=== PATIENT | male | born 1970 | race Caucasian/White ===

== ENCOUNTER 2019-06-28 18:40 | Emergency (ER) | payer MEDICAID ==
[2015-11-03 13:35] VITALS: BP 138/96
[~2019-06-28] VITALS: Ht 185.4 cm; Wt 79.5 kg
[~2019-06-28 18:40] MED LIST: CIPRO 500MG TA500 MG PO; CIPRO500 M1 PO; GLIPIZIDE10 M2 PO; GLUCOPHAGE PO; LISINOPRIL20 MG PO; NORCO 10-325 T1 EACH PO; NORCO 325 MG-51 TAB PO; PHENERGAN 25 TA25 MG PO; RT ALBUTEROL I6.8 GM INH
[2019-06-28] MEDS ORDERED: PROAIR HFA0.09 MG/AC IH (19:51)
[2019-06-28] MEDS ORDERED: CLOPIDOGREL PO (19:52)
[2019-06-28] MEDS ORDERED: ADULT ASPIRIN R81 MG PO (19:52)
[2019-06-28] MEDS ORDERED: KLONOPIN 1MG1 MG PO (19:52)
[2019-06-28] MEDS ORDERED: VITAMIN C500 M7 PO (19:52)
[2019-06-28] MEDS ORDERED: CLARITIN10 M1 PO (19:53)
[2019-06-28] MEDS ORDERED: CYCLOBENZAPRINE10 M1 PO (19:53)
[2019-06-28] MEDS ORDERED: SENNA PLUS 50 M1 TA2 PO (19:53)
[2019-06-28] MEDS ORDERED: MIRALAX17 GM PO (19:54)
[2019-06-28] MEDS ORDERED: LIPITOR 10M10 MG/TAB PO (19:58)
== END 2019-06-28 20:00 | disposition left against medical advice (07) ==
LOC: ED 18:40
DX: M79.604 Pain in right leg (principal); I10 Essential (primary) hypertension; E11.51 Type 2 diabetes mellitus with diabetic peripheral angiopathy without gangrene; F17.210 Nicotine dependence, cigarettes, uncomplicated; Z79.02 Long term (current) use of antithrombotics/antiplatelets; Z79.82 Long term (current) use of aspirin; Z89.511 Acquired absence of right leg below knee; W01.0XXA Fall on same level from slipping, tripping and stumbling without subsequent striking against object, initial encounter; Y92.009 Unspecified place in unspecified non-institutional (private) residence as the place of occurrence of the external cause

== ENCOUNTER 2019-10-05 20:42 | Emergency (ER) | payer MEDICAID ==
[~2019-10-05 20:42] MED LIST changes: +ADULT ASPIRIN R81 MG PO; +CLARITIN10 M1 PO; +CLOPIDOGREL PO; +CYCLOBENZAPRINE10 M1 PO; +KLONOPIN 1MG1 MG PO; +LIPITOR 10M10 MG/TAB PO; +MIRALAX17 GM PO; +PROAIR HFA0.09 MG/AC IH; +SENNA PLUS 50 M1 TA2 PO; +VITAMIN C500 M7 PO
[2019-10-05] MEDS ORDERED: LEVEMIR FLEX100 U/ML SQ (21:00)
[2019-10-05] MEDS ORDERED: HYDROCODONE BIT1 T36 PO (21:01)
[2019-10-05] MEDS ORDERED: DOXYCYCLINE MO100 M3 PO (21:02)
[2019-10-05] MEDS ORDERED: PHENERGAN 25 TA25 MG PO (21:02)
[2019-10-05 21:49] LABS: BASO # 0.1 (0.02-0.10); EOS # 0.1 (0.04-0.40); HEMATOCRIT 48.6 % (42.0-52.0); HEMOGLOBIN 16.2 g/dL (13.5-18.0); LYMPH# 2.3 (1.50-4.00); MEAN CELL VOLUME 87 fl (78-100); MEAN CORPUSCULAR HEMOGLOBIN 29 pg (27-31); MEAN CORPUSCULAR HGB CONC 33 g/dL (33-37); MEAN PLATELET VOLUME 10.9 fl (7.4-10.4); MONO # 1.1 (0.20-0.80); PLATELET COUNT 281 K/mm3 (130-400); RED BLOOD COUNT 5.61 M/mm3 (4.20-5.60); RED CELL DISTRIBUTION WIDTH 14.5 % (11.5-14.5); WHITE BLOOD COUNT 11.5 K/mm3 (4.8-10.8)
[2019-10-05 21:57] LABS: POTASSIUM 5.1 mmol/L (3.5-5.1)
[2019-10-05 21:58] LABS: CALCIUM 9.8 mg/dL (8.3-10.5)
[2019-10-05] MEDS ORDERED: MUPIROCIN1 GM NS (22:32)
[2019-10-05] MEDS ORDERED: SEPTRA DS 8001 TAB PO (22:32)
[2019-10-05 22:50] VITALS: BP 147/91
== END 2019-10-05 22:51 | disposition home or self-care (01) ==
LOC: ED 20:42
PROVIDERS: Family Medicine
DX: L03.114 Cellulitis of left upper limb (principal); L02.414 Cutaneous abscess of left upper limb; E11.51 Type 2 diabetes mellitus with diabetic peripheral angiopathy without gangrene; F17.210 Nicotine dependence, cigarettes, uncomplicated; Z79.02 Long term (current) use of antithrombotics/antiplatelets; Z79.4 Long term (current) use of insulin; Z79.82 Long term (current) use of aspirin; Z86.718 Personal history of other venous thrombosis and embolism; Z89.511 Acquired absence of right leg below knee

== ENCOUNTER 2020-08-14 11:23 | Emergency (ER) | payer MEDICAID ==
[~2020-08-14 11:23] MED LIST changes: +DOXYCYCLINE MO100 M3 PO; +HYDROCODONE BIT1 T36 PO; +LEVEMIR FLEX100 U/ML SQ; -LIPITOR 10M10 MG/TAB PO; +MUPIROCIN1 GM NS; +SEPTRA DS 8001 TAB PO; +SIMVASTATIN20 M1 PO
[2020-08-14] MEDS ORDERED: LISINOPRIL20 MG PO (11:45)
[2020-08-14] MEDS ORDERED: NEURONTIN300 MG/CAP PO (12:19)
[2020-08-14 12:22] LABS: BASO # 0.04 (0.02-0.10); EOS # 0.08 (0.04-0.40); EOS % 0.8 % (0.0-4.0); HEMATOCRIT 56.2 % (42.0-52.0); HEMOGLOBIN 19.6 g/dL (13.5-18.0); LYMPH# 3.05 (1.50-4.00); MEAN CELL VOLUME 84 fl (78-100); MEAN CORPUSCULAR HEMOGLOBIN 29 pg (27-31); MEAN CORPUSCULAR HGB CONC 35 g/dL (33-37); MEAN PLATELET VOLUME 10.6 fl (7.4-10.4); MONO # 0.86 (0.20-0.80); NEU # 5.64 (1.40-6.50); PLATELET COUNT 300 K/mm3 (130-400); RED BLOOD COUNT 6.72 M/mm3 (4.20-5.60); RED CELL DISTRIBUTION WIDTH 12.4 % (11.5-14.5); WHITE BLOOD COUNT 9.7 K/mm3 (4.8-10.8)
[2020-08-14 12:29] LABS: POTASSIUM 4.6 mmol/L (3.5-5.1)
[2020-08-14 12:31] LABS: CALCIUM 10.2 mg/dL (8.3-10.5)
[2020-08-14 12:53] LABS: URINE APPEARANCE HAZY
[2020-08-14] MEDS ORDERED: INSULIN (12:55)
[2020-08-14 12:58] LABS: URINE BILIRUBIN NEGATIVE (NEGATIVE); URINE BLOOD NEGATIVE (NEGATIVE); URINE COLOR YELLOW; URINE KETONE NEGATIVE (NEGATIVE); URINE LEUKOCYTE ESTERASE NEGATIVE (NEGATIVE); URINE NITRATE NEGATIVE (NEGATIVE); URINE PROTEIN(semi-quant) TRACE mg/dL (NEGATIVE); URINE UROBILINOGEN NORMAL (NORMAL)
[2020-08-14 12:59] LABS: URINE MUCUS PRESENT (NOT PRESENT); URINE WBC 0-1 /hpf (0-3)
[2020-08-14 15:46] VITALS: BP 130/97
== END 2020-08-14 16:08 | disposition short-term general hospital (02) ==
LOC: ED 11:23
PROVIDERS: Family Medicine
DX: E11.65 Type 2 diabetes mellitus with hyperglycemia (principal); E86.9 Volume depletion, unspecified; Z98.890 Other specified postprocedural states; I10 Essential (primary) hypertension; F17.210 Nicotine dependence, cigarettes, uncomplicated; Z20.822 Contact with and (suspected) exposure to COVID-19; Z88.1 Allergy status to other antibiotic agents; Z79.4 Long term (current) use of insulin; Z79.899 Other long term (current) drug therapy
CPT/HCPCS: J1815; J1885; J7030

== ENCOUNTER → 2021-12-22 | Outpatient (CLI) | payer MEDICAID ==
[~2021-12-22] MED LIST changes: +INSULIN; +NEURONTIN300 MG/CAP PO
[2021-12-22 16:28] LABS: BASO # 0.06 K/mm3 (0.02-0.10); EOS # 0.13 K/mm3 (0.04-0.40); EOS % 1.6 % (0.0-4.0); HEMATOCRIT 52.4 % (42.0-52.0); HEMOGLOBIN 17.4 g/dL (13.5-18.0); LYMPH# 2.31 K/mm3 (1.50-4.00); MEAN CELL VOLUME 88 fl (78-100); MEAN CORPUSCULAR HEMOGLOBIN 29 pg (27-31); MEAN CORPUSCULAR HGB CONC 33 g/dL (33-37); MEAN PLATELET VOLUME 10.7 fl (7.4-10.4); MONO # 0.62 K/mm3 (0.20-0.80); NEU # 4.75 K/mm3 (1.40-6.50); PLATELET COUNT 237 K/mm3 (130-400); RED BLOOD COUNT 5.99 M/mm3 (4.20-5.60); RED CELL DISTRIBUTION WIDTH 12.8 % (11.5-14.5); WHITE BLOOD COUNT 7.9 K/mm3 (4.8-10.8)
[2021-12-22 16:35] LABS: ALBUMIN 4.3 g/dL (3.5-5.0); SODIUM 131 mmol/L (136-145)
[2021-12-22 16:37] LABS: CALCIUM 9.6 mg/dL (8.3-10.5)
[2021-12-22 16:38] LABS: GLUCOSE 371 mg/dL (75-110); TOTAL PROTEIN 8.3 g/dL (6.4-8.3)
[2021-12-22 16:39] LABS: CARBON DIOXIDE 22 mmol/L (22-29)
[2021-12-22 16:40] LABS: TOTAL BILIRUBIN 0.4 mg/dL (0.2-1.2)
[2021-12-22 16:43] LABS: AST-SGOT 16 U/L (5-34)
[2021-12-22 16:44] LABS: ALT/SGPT 24 U/L (0-55)
== END ==
LOC: LAB 15:35
PROVIDERS: Family Medicine
DX: Z13.9 Encounter for screening, unspecified (principal)